=== PATIENT | male | born 1980 | race Caucasian/White ===

== ENCOUNTER 2021-03-19 02:06 | Emergency (ER) | payer BC, SELFPAY ==
[2021-03-19 02:12] VITALS: BMI 24.5
[2021-03-19 02:21] VITALS: BP 126/81; PULSE 50; RESP 16; TEMP 36.8; O2SAT 100
--- NOTE | 2021-03-19 02:24 | PC.NURSE ---
PATIENT STATING TO STAFF THAT IF HE WAS GOING TO BE WAITING MORE THAN 2 HOURS HE WOULD JUST CALL HIS RIDE AND GO HOME. EXPLAINING TO PATIENT THAT THE EMERGENCY DEPARTMENT IS BUSY BUT EVERYONE WHO SIGNS IN WILL BE SEEN. PATIENTS GET EVALUATED AND TRIAGED WILL BE SEEN BASED ON PRIORITY. PATIENT ASKING FOR IV FROM EMS TO BE REMOVED.
== END 2021-03-19 02:53 | disposition left against medical advice (07) ==
PROVIDERS: Emergency Provider Emergency Medicine
DX: R10.9 Unspecified abdominal pain (principal)
CPT/HCPCS: 99283